=== PATIENT | male | born 1950 | race Caucasian/White ===

== ENCOUNTER 2019-03-11 19:56 | Emergency (ER) | payer MEDICARE, BC ==
[2019-03-11 20:20] VITALS: BP 131/90
--- NOTE | 2019-03-11 20:21 | UC ---
Dental HPI - HPI Summary HPI Summary: 68-year-old male who had a cap put on tooth #19 approximately 3 weeks ago. 2 weeks ago started being a little sensitive but then that resolved until last evening when it became painful and sensitive and worse today with some left lower jaw swelling. - History of Current Complaint Chief Complaint: UCDentalProblem Stated Complaint: DENTAL CONCERN Time Seen by Provider: 03/11/19 20:05 Hx Obtained From: Patient Onset/Duration: Gradual Onset Severity: Moderate Pain Intensity: 9 Aggravating Factor(s): Chewing Alleviating Factor(s): Nothing Related History: Previous Dental Care on Same Tooth - Allergies/Home Medications Allergies/Adverse Reactions: Allergies Allergy/AdvReac Type Severity Reaction Status Date / Time erythromycin base Allergy Rash Verified 03/11/19 20:08 oxycodone Allergy Rash Verified 03/11/19 20:08 Home Medications: Home Medications Aspirin [Aspir-Low] 81 mg PO QPM 03/11/19 [History Confirmed 03/11/19] Esomeprazole Magnesium [Nexium 24Hr] 40 mg PO DAILY 03/11/19 [History Confirmed 03/11/19] Ibuprofen TAB* [Motrin TAB* 400 MG] 400 mg PO ONCE PRN 03/11/19 [History Confirmed 03/11/19] Levothyroxine TAB* [Synthroid 100 MCG TAB*] 175 mcg PO QAM 03/11/19 [History Confirmed 03/11/19] Losartan/Hydrochlorothiazide [Losartan Potassium/Hydroc 100-25 mg] 1 tab PO QAM 03/11/19 [History Confirmed 03/11/19] Naproxen TAB* [Naprosyn 250 mg TAB*] 440 mg PO ONCE PRN 03/11/19 [History Confirmed 03/11/19] Rosuvastatin Calcium 40 mg PO QPM 03/11/19 [History Confirmed 03/11/19] PMH/Surg Hx/FS Hx/Imm Hx Previously Healthy: Yes Endocrine History: Thyroid Disease Cardiovascular History: Hypertension GI/ History: Gastroesophageal Reflux - Surgical History Surgical History: Yes Surgery Procedure, Year, and Place: LAD stent 2005, tonsils, appy; right hip 2006, left hip 2014 - Family History Known Family History: Positive: Non-Contributory - Social History Alcohol Use: Occasionally Substance Use Type: None Smoking Status (MU): Never Smoked Tobacco Review of Systems All Other Systems Reviewed And Are Negative: Yes ENT: Positive: Dental Pain - Tooth #19 became sensitive last evening with some left lower jaw swelling. Is Patient Immunocompromised?: No Physical Exam Triage Information Reviewed: Yes Appearance: Well-Appearing, No Pain Distress, Well-Nourished Vital Signs: Initial Vital Signs Temp 98.7 F 03/11/19 20:14 Pulse 85 03/11/19 20:14 Resp 18 03/11/19 20:14 BP 131/90 03/11/19 20:14 Pulse Ox 98 03/11/19 20:14 Vital Signs Reviewed: Yes Dental: Positive: Percussion Tenderness @ - Tooth #19 with tenderness on palpation. No evidence of abscess formation. Gumline is mildly erythematous and minimally swollen. Neck: Positive: Supple, Nontender, No Lymphadenopathy Respiratory: Positive: Lungs clear, Normal breath sounds, No respiratory distress, No accessory muscle use Cardiovascular: Positive: RRR, No Murmur, Pulses Normal, Brisk Capillary Refill Musculoskeletal Exam: Normal Neurological Exam: Normal Psychological Exam: Normal Skin Exam: Normal Dental Complaint Course/Dx - Course Course Of Treatment: I advised the patient that if the pain or swelling worsens over the next 2 or 3 days, because he is traveling, to find an emergency dental service if needed. - Differential Dx/Diagnosis Provider Diagnosis: Toothache Discharge - Sign-Out/Discharge Documenting (check all that apply): Patient Departure All imaging exams completed and their final reports reviewed: No Studies - Discharge Plan Condition: Fair Disposition: HOME Prescriptions: Amoxicillin/Clavulanate TAB* [Augmentin TAB 875*] 875 mg PO BID 10 Days #20 tab Patient Education Materials: Toothache (ED) Referrals: No Primary Care Phys,NOPCP [Primary Care Provider] - Additional Instructions: Apply ice to the sore area. Take the Augmentin with food. Definite follow-up with an emergency dental services in 2 or 3 days if any worsening symptoms. May take Tylenol every 4 hours and Motrin every 8 hours with food. - Billing Disposition and Condition Condition: FAIR Disposition: Home
== END 2019-03-11 20:31 | disposition home or self-care (01) ==
LOC: UCCORT 19:56
DX: Z98.811 Dental restoration status (principal); K08.89 Other specified disorders of teeth and supporting structures; Z88.5 Allergy status to narcotic agent; Z88.1 Allergy status to other antibiotic agents; I10 Essential (primary) hypertension; K21.9 Gastro-esophageal reflux disease without esophagitis; E07.9 Disorder of thyroid, unspecified
CPT/HCPCS: 99201; G0463